=== PATIENT | female | born 1955 | race African-American/Black ===

== ENCOUNTER 2024-03-27 11:32 | Emergency (ER) | payer OTHER ==
[~2024-03-27] VITALS: Ht 167.6 cm; Wt 63.8 kg
[2024-03-27] MEDS: ACETAMINOPHEN 500 MG TAB PO ONE (13:09)
[2024-03-27 13:21] VITALS: BP 122/77; PULSE 71; RESP 18; TEMP 97.9; O2SAT 99
[2024-03-27] MEDS ORDERED: CEPH500C PO (14:17)
[2024-03-27] MEDS ORDERED: ACET-1080 PO (14:17)
== END 2024-03-27 14:24 | disposition home or self-care (01) ==
LOC: ER 11:32
DX: S63.92XA Sprain of unspecified part of left wrist and hand, initial encounter (principal); S63.91XA Sprain of unspecified part of right wrist and hand, initial encounter; S00.83XA Contusion of other part of head, initial encounter; W18.09XA Striking against other object with subsequent fall, initial encounter; Y93.01 Activity, walking, marching and hiking; Y92.89 Other specified places as the place of occurrence of the external cause; Y99.8 Other external cause status
CPT/HCPCS: 70450; 73130